=== PATIENT | female | born 1965 | race Native Hawaiian/Other Pacific Islander ===

== ENCOUNTER 2019-03-22 09:40 | Outpatient (CLI) | payer OTHER ==
[~2019-03-22 09:40] MED LIST: ALPR0.2566 PO; BENICAR20 MG PO; CETI10TA PO; IBUP800T30 PO; LEVEMIR SC; LEXAPRO10 MG PO; METF100038 PO; METF500T PO; PANT40TA PO
== END 2019-03-22 22:26 | disposition home or self-care (01) ==
LOC: LABW 09:40
DX: H54.3 Unqualified visual loss, both eyes (principal); H35.3230 Exudative age-related macular degeneration, bilateral, stage unspecified; H26.8 Other specified cataract; G45.8 Other transient cerebral ischemic attacks and related syndromes; I77.6 Arteritis, unspecified; I10 Essential (primary) hypertension; E11.9 Type 2 diabetes mellitus without complications; K21.9 Gastro-esophageal reflux disease without esophagitis; F41.9 Anxiety disorder, unspecified; E66.9 Obesity, unspecified

== ENCOUNTER 2022-09-03 11:38 | Outpatient (CLI) | payer OTHER ==
[2022-09-03 12:15] LABS: PLATELET COUNT 220 K/uL (152-353)
[2022-09-03 12:37] LABS: POTASSIUM 5.4 mmol/L (3.6-5.2)
== END 2022-09-03 17:00 | disposition home or self-care (01) ==
LOC: LABW 11:38
PROVIDERS: ATTEND Internal Medicine
DX: N18.31 Chronic kidney disease, stage 3a (principal); E87.5 Hyperkalemia; D64.89 Other specified anemias; I67.7 Cerebral arteritis, not elsewhere classified
CPT/HCPCS: 80053; 81002; 82043; 82306; 82330; 82570; 82607; 82728; 82746; 83540; 83550; 83735; 83970; 84100; 84133; 84156; 85027; 85652; 86140

== ENCOUNTER 2022-10-12 15:33 | Outpatient (CLI) | payer OTHER ==
[2022-10-12 15:51] LABS: PLATELET COUNT 264 K/uL (152-353)
[2022-10-12 16:01] LABS: POTASSIUM 3.9 mmol/L (3.6-5.2)
== END 2022-10-12 18:48 | disposition home or self-care (01) ==
LOC: LAB 15:33
PROVIDERS: ATTEND Internal Medicine
DX: N20.0 Calculus of kidney (principal); B02.30 Zoster ocular disease, unspecified; R78.81 Bacteremia; N18.32 Chronic kidney disease, stage 3b; J96.21 Acute and chronic respiratory failure with hypoxia; D64.89 Other specified anemias; R65.21 Severe sepsis with septic shock
CPT/HCPCS: 80048; 85027

== ENCOUNTER 2022-10-19 12:17 | Outpatient (CLI) | payer OTHER ==
[2022-10-19 12:59] LABS: PLATELET COUNT 257 K/uL (152-353); POTASSIUM 4.6 mmol/L (3.6-5.2)
== END 2022-10-19 19:22 | disposition home or self-care (01) ==
LOC: LAB 12:17
PROVIDERS: ATTEND Internal Medicine
DX: N20.0 Calculus of kidney (principal); B02.30 Zoster ocular disease, unspecified; R78.81 Bacteremia; N18.32 Chronic kidney disease, stage 3b; J96.21 Acute and chronic respiratory failure with hypoxia; D64.89 Other specified anemias; R65.21 Severe sepsis with septic shock
CPT/HCPCS: 80048; 85027

== ENCOUNTER 2022-10-26 12:48 | Outpatient (CLI) | payer OTHER ==
[2022-10-26 14:18] LABS: POTASSIUM 4.5 mmol/L (3.6-5.2)
== END 2022-10-26 19:28 | disposition home or self-care (01) ==
LOC: LAB 12:48
PROVIDERS: ATTEND Internal Medicine
DX: N20.0 Calculus of kidney (principal); B02.30 Zoster ocular disease, unspecified; R78.81 Bacteremia; N18.32 Chronic kidney disease, stage 3b; J96.21 Acute and chronic respiratory failure with hypoxia; D64.89 Other specified anemias; R65.21 Severe sepsis with septic shock
CPT/HCPCS: 80048

== ENCOUNTER 2022-11-02 12:17 | Outpatient (CLI) | payer OTHER ==
[2022-11-02 13:10] LABS: POTASSIUM 4.9 mmol/L (3.6-5.2)
[2022-11-02 13:47] LABS: PLATELET COUNT 220 K/uL (152-353)
== END 2022-11-02 20:49 | disposition home or self-care (01) ==
LOC: LAB 12:17
PROVIDERS: ATTEND Internal Medicine
DX: N20.0 Calculus of kidney (principal); B02.30 Zoster ocular disease, unspecified; R78.81 Bacteremia; N18.32 Chronic kidney disease, stage 3b; J96.21 Acute and chronic respiratory failure with hypoxia; D64.89 Other specified anemias; R65.21 Severe sepsis with septic shock
CPT/HCPCS: 80053; 85027

== ENCOUNTER 2022-11-09 16:13 | Outpatient (CLI) | payer OTHER ==
[2022-11-09 17:16] LABS: POTASSIUM 3.8 mmol/L (3.6-5.2)
== END 2022-11-09 19:13 | disposition home or self-care (01) ==
LOC: LAB 16:13
PROVIDERS: ATTEND Internal Medicine
DX: N20.0 Calculus of kidney (principal); B02.30 Zoster ocular disease, unspecified; R78.81 Bacteremia; N18.32 Chronic kidney disease, stage 3b; J96.21 Acute and chronic respiratory failure with hypoxia; D64.89 Other specified anemias; R65.21 Severe sepsis with septic shock
CPT/HCPCS: 80048

== ENCOUNTER 2022-11-24 13:39 | Outpatient (CLI) | payer OTHER ==
[2022-11-24 14:03] LABS: PLATELET COUNT 234 K/uL (152-353)
== END 2022-11-24 20:27 | disposition home or self-care (01) ==
LOC: LAB 13:39
PROVIDERS: ATTEND Internal Medicine
DX: N20.0 Calculus of kidney (principal); B02.30 Zoster ocular disease, unspecified; R78.81 Bacteremia; N18.32 Chronic kidney disease, stage 3b; J96.21 Acute and chronic respiratory failure with hypoxia; D64.89 Other specified anemias; R65.21 Severe sepsis with septic shock
CPT/HCPCS: 36415; 80048; 85027

== ENCOUNTER 2022-12-01 12:40 | Outpatient (CLI) | payer OTHER ==
[2022-12-01 13:17] LABS: PLATELET COUNT 201 K/uL (152-353)
== END 2022-12-01 20:25 | disposition home or self-care (01) ==
LOC: LAB 12:40
PROVIDERS: ATTEND Internal Medicine
DX: N20.0 Calculus of kidney (principal); B02.30 Zoster ocular disease, unspecified; R78.81 Bacteremia; N18.32 Chronic kidney disease, stage 3b; J96.21 Acute and chronic respiratory failure with hypoxia; D64.89 Other specified anemias; R65.21 Severe sepsis with septic shock
CPT/HCPCS: 80048; 85027

== ENCOUNTER 2022-12-08 13:36 | Outpatient (CLI) | payer OTHER ==
[2022-12-08 14:17] LABS: PLATELET COUNT 184 K/uL (152-353)
[2022-12-08 14:19] LABS: POTASSIUM 4.6 mmol/L (3.6-5.2)
== END 2022-12-08 18:57 | disposition home or self-care (01) ==
LOC: LAB 13:36
PROVIDERS: ATTEND Internal Medicine
DX: N20.0 Calculus of kidney (principal); B02.30 Zoster ocular disease, unspecified; R78.81 Bacteremia; N18.32 Chronic kidney disease, stage 3b; J96.21 Acute and chronic respiratory failure with hypoxia; D64.89 Other specified anemias; R65.21 Severe sepsis with septic shock
CPT/HCPCS: 80053; 85027